=== PATIENT | female | born 1940 | race Caucasian/White ===

== ENCOUNTER 2016-07-24 10:18 | Emergency (ER) ==
[2016-07-24 10:30] VITALS: BP 183/105; TEMP 97.9; BMI 25.7
--- NOTE | 2016-07-24 10:56 | ED.PDOC ---
General ED Provider: Dr. HEYDI AGUILLON JR Chief Complaint: Hip Pain/Injury Stated Complaint: BENT DOWN LAST NIGHT TO TAKE OFF PANTS AND HEARD AND FELT POP LEFTHIP.[End]97.8 70 16 96% 183/105 5/10 ACHE IN UPPER LEG WELL.[End] Time Seen by Physician: 10:50 Mode of Arrival: Walk-In Information Source: Patient Exam Limitations: No limitations Primary Care Provider: CHLOE XIE Nursing and Triage Documentation Reviewed and Agree: No Review of Systems - Review Of Systems Constitutional: Reports: No symptoms Eyes: Reports: No symptoms Ears, Nose, Mouth, Throat: Reports: No symptoms Respiratory: Reports: No symptoms Cardiac: Reports: No symptoms GI: Reports: No symptoms : Reports: No symptoms Musculoskeletal: Reports: Joint pain, Neck pain (since teenager had injury now discomfort takes aleve twice a day) Skin: Reports: No symptoms Neurological: Reports: No symptoms Endocrine: Reports: No symptoms Hematologic/Lymphatic: Reports: No symptoms All Other Systems: Other Past Medical History - Past Medical History Endocrine: Reports: Dyslipidemia Cardiovascular: Reports: Hypertension Respiratory: Reports: None Hematological: Reports: None Gastrointestinal: Reports: None Genitourinary: Reports: None Neuro/Psych: Reports: None Musculoskeletal: Reports: None Cancer: Reports: Other (htn ca chol melanoma) Last Menstrual Period: NA - Surgical History General Surgical History: Reports: Tonsillectomy, Other (back surgery for melanoma 1973) - Family History Family History: Reports: Unknown - Social History Smoking Status: Former smoker Hx Substance Use: No Alcohol Screening: None - Immunizations Tetanus Shot up to Date: No Physical Exam - Physical Exam Appearance: Well-appearing, Thin Pain Distress: Mild Eyes: MARIA A, EOMI, Conjunctiva clear Respiratory: Airway patent Musculoskeletal: Normal strength, ROM intact, No edema, No calf tenderness ( neck not examined not left hip pain on compression not with ROM or standing tender over left sacroiliac neg slr) Critical Care Note - Critical Care Note Total Time (mins): 0 Course - Course Orders, Labs, Meds: Orders Category Date Time Status PELVIS & MADHU HIPS Stat RADS 07/24/16 10:50 Taken Vital Signs: Temp Pulse Resp BP Pulse Ox 07/24/16 10:21 97.9 F 70 16 183/105 H 96 Departure - Departure Time of Disposition: 12:02 Disposition: HOME SELF-CARE Discharge Problem: Hip pain, Pain of left hip Instructions: Hip Pain (ED) Condition: Good Pt referred to PMD for follow-up: Yes Additional Instructions: recheck PMD this week official xray reading will be available tomorrow return if unable to walk may try [place] for pain OK to start with 1/2 tablet Prescriptions: Hydrocodone Bit/Acetaminophen [[place] 5-325] 1 - 2 tab PO Q6HR PRN #12 tablet PRN Reason: pain Allergies/Adverse Reactions: Allergies No Known Allergies Allergy (Unverified 07/24/16 10:20) Home Medications: Ambulatory Orders Calcium Carbonate [Calcium] 500 mg PO DAILY 07/24/16 Hydrochlorothiazide 12.5 mg PO DAILY 07/24/16 Hydrocodone Bit/Acetaminophen [[place] 5-325] 1 - 2 tab PO Q6HR PRN #12 tablet 09/08 Naproxen Sodium [Aleve] 220 mg PO BID 07/24/16 Simvastatin 20 mg PO DAILY 07/24/16
--- NOTE | 2016-07-24 13:51 | DI ---
EXAM: Pelvis and bilateral hips HISTORY: Left hip pain COMPARISON: None TECHNIQUE: Single view pelvis and single frog-leg views right and left hip each were performed FINDINGS: No fracture or dislocation. Sacroiliac joints intact. Sacral arcuate lines intact. The re is degenerative change in the lumbar spine is poorly visualized. Mild narrowing of the right and left hip joint with mild degenerative subchondral cystic change on the right. Atherosclerotic vasc ular calcification. IMPERSSION: 1. No fracture or dislocation. 2. Mild osteoarthritis right and left hip.
== END 2016-07-24 12:18 | disposition home or self-care (01) ==
LOC: ED 10:18
DX: M25.552 Pain in left hip (principal)
CPT/HCPCS: 99282